=== PATIENT | male | born 1960 | race African-American/Black ===

== ENCOUNTER 2016-03-09 06:56 | Emergency (ER) | payer BC, MEDICAID ==
[~2016-03-09] VITALS: Ht 172.7 cm; Wt 102.1 kg
[~2016-03-09 06:56] MED LIST: ACETAMINOP500 MG/51 ORAL; ACETAMINOPHEN650 M4 ORAL; AMBIEN5 MG ORAL; AMLODIPINE BESYL5 MG ORAL; BENADRYL25 M3 PO; CEFTRIAXONE2 G2 IV; HYDROCHLOROTHIA25 MG ORAL; KENALOG 0.1% CR15 GM APPLIC; MIRALAX17 G2 ORAL; NKM; NORCO 10-325 T1 EACH ORAL; ONDANSETRON4 MG/2 M2 IVP
[2016-03-09 07:10] VITALS: BP 110/76
[2016-03-09] MEDS ORDERED: SULFAMETHOXAZO1 EAC2 ORAL (07:14)
[2016-03-09] MEDS ORDERED: NORCO 5-325 TA1 EACH ORAL ×2 (07:14→09:09)
[2016-03-09] MEDS ORDERED: Oxycodone/Acetaminophen 5-325 ORAL ONE (07:30)
--- NOTE | 2016-03-09 07:34 | Emergency Room Report ---
History of Present Illness General Chief Complaint: Male Urogenital Problems Source: Patient Present Illness HPI The patient presents with leaking from his Hayward catheter. He had a radical prostatectomy last Wednesday. He states he's had making ever since that time from around the Hayward. It got worse last night and he was soaked. He denies passing any blood clots at this time. He is taking antibiotics and pain medication, Sterling. He denies any fevers. He does have right-sided flank pain when he stands up and moves. The pain is 10/10 and pulse with Sterling. It radiates somewhat down to the groin area. The patient called the on-call doctor today who told him to come to the emergency room facet Hayward catheter removed. This is his urologist. The patient has a history of prostate cancer. Allergies: Coded Allergies: No Known Allergies (Unverified , 07/31/14) Patient History Past Medical History: see triage record, other - prostate cancer Past Surgical History: other - radical prostatectomy Social History Narrative brought by daughter Reviewed Nursing Documentation: PMH: Agreed, PSxH: Agreed Nursing Documentation-PMH Past Medical History: No History, Except For Hx Hypertension: Yes Hx Pacemaker: No Hx Asthma: No Hx COPD: No Hx Diabetes: No Hx Cancer: No Hx Gastrointestinal Problems: No Hx Dialysis: No Hx Neurological Problems: No Hx Cerebrovascular Accident: No Hx Seizures: No Review of Systems All Other Systems: negative except mentioned in HPI Physical Exam Vital Signs Date Time Temp Pulse Resp B/P Pulse Ox O2 Delivery O2 Flow Rate FiO2 03/09/16 07:05 98.6 93 14 110/76 95 Room Air Sp02 EP Interpretation: reviewed, normal General Appearance: well appearing, no apparent distress, GCS 15 Head: normocephalic Eyes: bilateral eye normal inspection ENT: moist mucus membranes Neck: supple Respiratory: lungs clear, normal breath sounds Cardiovascular #1: regular rate, rhythm Cardiovascular #2: 2+ radial (R) Gastrointestinal: normal inspection, normal bowel sounds, non tender, no mass, non-distended Genitourinary: normal inspection - with a catheter present, no CVA tenderness Musculoskeletal: back normal, gait/station normal, normal range of motion Neurologic: alert, oriented x3 - Grosssly normal neurologic exam Psychiatric: mood/affect normal Skin: normal inspection, warm/dry, other - Surgical scars abdomen Medical Decision Making Diagnostic Impression: Primary Impression: Leaking hayward post prostatectomy ER Course The patient presents with leaking around Hayward after a prostatectomy 5 days ago. Differential includes blocked Hayward, leaking from around the Hayward, urinary tract infection Amoxil as. He also has flank pain. He be evaluated with laboratory including urinalysis. In addition we will check post void residual. Also will contact his urologist regarding the recommendation from an on-call physician to remove the Hayward. This is somewhat problematic as it might not be appropriate tract that's formed initially appeared time. Bladder scan with no residual. Dr. Yaniv Alba . Discussed with covering neurologists. He recommends removing the Hayward. We will do so. Labs unremarkable. Patient wants to go home before trying to urinate. Patient stable for outpatient observation and treatment. Laboratory Tests Test 03/09/16 07:30 White Blood Count 7.2 K/UL (4.8-10.8) Red Blood Count 4.01 M/UL (4.70-6.10) L Hemoglobin 12.0 G/DL (14.2-18.0) L Hematocrit 38.7 % (42.0-52.0) L Mean Corpuscular Volume 97 FL (80-99) Mean Corpuscular Hemoglobin 29.9 PG (27.0-31.0) Mean Corpuscular Hemoglobin Concent 30.9 G/DL (32.0-36.0) L Red Cell Distribution Width 12.0 % (11.6-14.8) Platelet Count 289 K/UL (150-450) Mean Platelet Volume 6.1 FL (6.5-10.1) L Neutrophils (%) (Auto) 66.4 % (45.0-75.0) Lymphocytes (%) (Auto) 19.1 % (20.0-45.0) L Monocytes (%) (Auto) 9.2 % (1.0-10.0) Eosinophils (%) (Auto) 3.4 % (0.0-3.0) H Basophils (%) (Auto) 1.9 % (0.0-2.0) Urine Color Yellow Urine Appearance Clear Urine pH 6 (4.5-8.0) Urine Specific [place] 1.020 (1.005-1.035) Urine Protein 2+ (NEGATIVE) H Urine Glucose (UA) Negative (NEGATIVE) Urine Ketones Negative (NEGATIVE) Urine Occult Blood 5+ (NEGATIVE) H Urine Nitrite Negative (NEGATIVE) Urine Bilirubin Negative (NEGATIVE) Urine Urobilinogen 1 MG/DL (0.0-1.0) H Urine Leukocyte Esterase 3+ (NEGATIVE) H Urine RBC 15-20 /HPF (0 - 0) H Urine WBC 5-10 /HPF (0 - 0) H Urine Squamous Epithelial Cells Occasional /LPF Urine Bacteria Few /HPF (NONE) Urine Mucus Few /LPF (NONE/OCC) H Sodium Level 134 mEQ/L (135-145) L Potassium Level 4.3 mEQ/L (3.4-4.9) Chloride Level 94 mEQ/L (98-107) L Carbon Dioxide Level 27 mEQ/L (20-30) Anion Gap 13 (5-15) Blood Urea Nitrogen 14 mg/dL (7-23) Creatinine 1.1 mg/dL (0.7-1.2) Estimate Glomerular Filtration Rate > 60 mL/min (>60) Glucose Level 105 mg/dL (74-106) Calcium Level 9.3 mg/dL (8.6-10.2) Total Bilirubin 0.3 mg/dL (0.0-1.2) Aspartate Amino Transferase (AST) 30 U/L (5-40) Alanine Aminotransferase (ALT) 29 U/L (3-41) Alkaline Phosphatase 74 U/L (40-129) Total Protein 7.5 g/dL (6.6-8.7) Albumin 3.9 g/dL (3.5-5.2) Globulin 3.6 g/dL Albumin/Globulin Ratio 1.0 (1.0-2.7) Status: improved Disposition: HOME, SELF-CARE Condition: Improved Scripts Hydrocodone Bit/Acetaminophen 5-325* (NORCO 5-325*) 1 Each Tablet 1 TAB ORAL Q6H Y for For Pain, #14 TAB 0 Refills Prov: Liban Vieira M.D. 03/09/16 Liban Vieira M.D. Mar 09, 2016 07:34
[2016-03-09 07:59] LABS: BASOPHILS % (AUTO) 1.9 % (0.0-2.0); EOSINOPHILS % (AUTO) 3.4 % (0.0-3.0); LYMPHOCYTES % (AUTO) 19.1 % (20.0-45.0); MEAN CORPUSCULAR HEMOGLOBIN 29.9 PG (27.0-31.0); MEAN CORPUSCULAR HGB CONC 30.9 G/DL (32.0-36.0); MEAN CORPUSCULAR VOLUME 97 FL (80-99); MEAN PLATELET VOLUME 6.1 FL (6.5-10.1); MONOCYTES % (AUTO) 9.2 % (1.0-10.0); NEUTROPHILS % (AUTO) 66.4 % (45.0-75.0); PLATELET COUNT 289 K/UL (150-450); RED BLOOD COUNT 4.01 M/UL (4.70-6.10); WHITE BLOOD COUNT 7.2 K/UL (4.8-10.8)
[2016-03-09 08:01] LABS: APPEARANCE,URINE CLEAR; KETONES,URINE NEGATIVE (NEGATIVE); LEUKOCYTE ESTERASE ,URINE 3+ (NEGATIVE); NITRITE,URINE NEGATIVE (NEGATIVE); PH,URINE 6 (4.5-8.0); PROTEIN,URINE 2+ (NEGATIVE); UROBILINOGEN,URINE 1 MG/DL (0.0-1.0)
[2016-03-09 08:13] LABS: ALANINE AMINOTRANSFERASE 29 U/L (3-41); ANION GAP 13 (5-15); ASPARTATE AMINO TRANSFERASE 30 U/L (5-40); CALCIUM 9.3 mg/dL (8.6-10.2); CARBON DIOXIDE 27 mEQ/L (20-30); CHLORIDE 94 mEQ/L (98-107); CREATININE 1.1 mg/dL (0.7-1.2); GLOMERULAR FILTRATION RATE > 60 mL/min (>60); HEMOLYSIS 3; POTASSIUM 4.3 mEQ/L (3.4-4.9); SODIUM 134 mEQ/L (135-145); TOTAL PROTEIN 7.5 g/dL (6.6-8.7)
[2016-03-09 08:27] LABS: BACTERIA,URINE FEW /HPF; MUCUS,URINE FEW /LPF (NONE/OCC); RBC,URINE 15-20 /HPF (0 - 0); SQUAMOUS EPITHELIAL CELL,UR OCCASIONAL /LPF (NONE/OCC)
[2016-03-09 09:18] VITALS: BP 110/76
== END 2016-03-09 09:18 | disposition home or self-care (01) ==
LOC: EMR 07:31
DX: T83.038A Leakage of other urinary catheter, initial encounter (principal); I10 Essential (primary) hypertension; Z85.46 Personal history of malignant neoplasm of prostate; Y83.8 Other surgical procedures as the cause of abnormal reaction of the patient, or of later complication, without mention of misadventure at the time of the procedure; Y92.9 Unspecified place or not applicable; Y99.8 Other external cause status
CPT/HCPCS: 36415; 80053; 81003; 85025; 99282

== ENCOUNTER 2017-06-13 10:47 | Emergency (ER) | payer BC ==
[~2017-06-13] VITALS: Ht 170.2 cm; Wt 108.9 kg
[~2017-06-13 10:47] MED LIST changes: +NORCO 5-325 TA1 EACH ORAL; +SULFAMETHOXAZO1 EAC2 ORAL
--- NOTE | 2017-06-13 11:55 | Emergency Room Report ---
History of Present Illness General Chief Complaint: Lower Extremity Injury Source: Patient Present Illness HPI 49-year-old male walked in with acute pain to bottom of right foot since this morning. Was and waiting normal yesterday, no recent trauma. Denies rash to area, fever or chills. Denies any previous ankle or foot trauma. Denies history of CHF. Took some Tylenol this morning with improvement, however now has to ambulate with cane Allergies: Coded Allergies: No Known Allergies (Unverified , 07/31/14) Patient History Past Medical History: HTN Past Surgical History: none Pertinent Family History: none Social History: Denies: smoking, alcohol use, drug use Immunizations: UTD Reviewed Nursing Documentation: PMH: Agreed; PSxH: Agreed Nursing Documentation-PMH Hx Hypertension: Yes Hx Pacemaker: No Hx Asthma: No Hx COPD: No Hx Diabetes: No Hx Cancer: No Hx Gastrointestinal Problems: No Hx Dialysis: No Hx Neurological Problems: No Hx Cerebrovascular Accident: No Hx Seizures: No Review of Systems All Other Systems: negative except mentioned in HPI Physical Exam Vital Signs Date Time Temp Pulse Resp B/P (MAP) Pulse Ox O2 Delivery O2 Flow Rate FiO2 06/13/17 10:50 98.4 92 18 128/83 92 Room Air 98.4 Sp02 EP Interpretation: reviewed, normal General Appearance: normal inspection, well appearing, no apparent distress, alert, GCS 15, non-toxic Head: normocephalic, atraumatic Eyes: bilateral eye PERRL, bilateral eye EOMI ENT: normal ENT inspection, hearing grossly normal, normal pharynx, no angioedema, normal voice, TMs + canals normal, uvula midline, moist mucus membranes Neck: normal inspection, full range of motion, supple, thyroid normal, no meningismus, no bony tend Respiratory: normal inspection, lungs clear, normal breath sounds, no rhonchi, no respiratory distress, no retraction, no accessory muscle use, no wheezing, speaking full sentences Cardiovascular #1: regular rate, rhythm, no edema, no JVD, normal capillary refill Gastrointestinal: normal inspection, normal bowel sounds, non tender, soft, no mass, no peritonitis, non-distended, no guarding, no hernia, no pulsatile mass Genitourinary: no CVA tenderness Musculoskeletal: normal inspection, back normal, normal range of motion, no calf tenderness, pelvis stable, Christophe's Sign negative, other - Right foot: no obvious trauma. No pallor. No infection. Sensation/motor intact. 2++ dorsalis pedis pulse. Neurologic: normal inspection, alert, oriented x3, responsive, facilities maintenance worker III-XII nml as tested, motor strength/tone normal, cerebellar normal, normal gait, speech normal Psychiatric: normal inspection, judgement/insight normal, mood/affect normal, no suicidal/homicidal ideation, no delusions Skin: normal inspection, normal color, no rash Lymphatic: normal inspection, no adenopathy Medical Decision Making Diagnostic Impression: Primary Impression: Right foot pain ER Course vss, afebrile Duplex artery shows good flow to right foot Xray negative for traumatic injury, osteophyte Likely MSK strain from softball yesterday Rx motrin, PMD followup ER course: Patient has remained stable during ED stay. Disposition: Patient is to be discharged to home. Prescriptions given are motrin Patient is instructed to follow up with their primary care doctor within 5 days. Strict return precautions discussed with patient such as fever, chills, worsening/severe pain, nausea, vomiting, which may indicate severe illness. Patient verbalizes understanding and agrees with plan. Please note that this Emergency Department Report was dictated using [employer] nursery technology software, occasionally this can lead to erroneous entry secondary to interpretation by the dictation equipment Other X-Ray Diagnostic Results Other X-Ray Diagnostic Results : X-Ray ordered: Right foot # of Views/Limited Vs Complete: 3 View Indication: Pain EP Interpretation: Yes Interpretation: no dislocation, no soft tissue swelling, no fractures Impression: No acute disease Electronically Signed by: Dr Satish Pak mD Last Vital Signs Date Time Temp Pulse Resp B/P (MAP) Pulse Ox O2 Delivery O2 Flow Rate FiO2 06/13/17 10:50 98.4 92 18 128/83 92 Room Air 98.4 Status: improved Disposition: HOME, SELF-CARE SATISH PAK M.D. Jun 13, 2017 11:55
[2017-06-13] MEDS ORDERED: IBUPROFEN600 MG ORAL (12:55)
[2017-06-13 13:07] VITALS: BP 119/78
--- NOTE | 2017-06-14 10:49 | Diagnostic Imaging Report ---
Indication: Pain Comparison: None Findings: 3 views of the right foot were obtained. No acute fractures, malalignment, erosions or periostitis are identified. Soft tissues are unremarkable. Impression: No acute findings.
--- NOTE | 2017-06-15 12:43 | Diagnostic Imaging Report ---
APPROVED REPORT CPT Code: 60163 Symptoms Comments: Pain RIGHT LEG: Common femoral artery waveform analysis is within normal limits at rest. Color flow duplex sonography reveals patency of the superficial femoral, popliteal, and tibial arteries, there is no evidence of stenosis or occlusion within these segments. Doppler tibial artery waveform analysis is (tri-phasic) within normal limits, right leg.
== END 2017-06-13 13:09 | disposition home or self-care (01) ==
LOC: EMR 11:05
DX: M79.671 Pain in right foot (principal); I10 Essential (primary) hypertension
CPT/HCPCS: 93926; 99284

== ENCOUNTER 2018-06-19 00:55 | Emergency (ER) | payer BC ==
[~2018-06-19] VITALS: Ht 170.2 cm; Wt 113.4 kg
[~2018-06-19 00:55] MED LIST changes: +IBUPROFEN600 MG ORAL
[2018-06-19 01:10] VITALS: BP 118/72
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
[2018-06-19] MEDS ORDERED: Tetanus/Diptheria/Pertussis IM ONE (01:30)
[2018-06-19] MEDS ORDERED: Bacitracin Oint UD TOPIC ONE (01:30)
[2018-06-19] MEDS ORDERED: CEPHALEXIN500 MG ORAL (01:55)
[2018-06-19] MEDS ORDERED: BACITRACIN15 GM TOPIC (01:55)
[2018-06-19] MEDS ORDERED: Acetaminophen 500mg (ES) tab ORAL ONE (02:00)
--- NOTE | 2018-06-19 02:06 | NUR ---
ED Nurse Note: Waiting for [employer] to come for report but pt was unable to wait any longer. Got pt's Tele, will contact them when [employer] comes.
--- NOTE | 2018-06-19 02:07 | NUR ---
ED Nurse Note: Pt's daughter/Gemma, [phone].
[2018-06-19 02:08] VITALS: BP 115/71
--- NOTE | 2018-06-19 02:08 | NUR ---
ER DISCHARGE NOTE: Patient is cleared to be discharged per Dr. Keith. Dressing applied to both arms and abdominal area.Pain meds given as ordered. Pt is aox4 on room air with stable vital signs. Pt was given dc and prescription instructions and was able to verbalize understanding. Pt's ID band removed. Pt is able to ambulate with steady gait and took all belongings. Accompanied by his daughter.
--- NOTE | 2018-06-19 02:12 | NUR ---
ED Nurse Note: [employer] arrived, provided information.
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
== END 2018-06-19 02:08 | disposition home or self-care (01) ==
LOC: EMR 01:25
DX: S41.112A Laceration without foreign body of left upper arm, initial encounter (principal); S41.111A Laceration without foreign body of right upper arm, initial encounter; S31.119A Laceration without foreign body of abdominal wall, unspecified quadrant without penetration into peritoneal cavity, initial encounter; Y04.8XXA Assault by other bodily force, initial encounter; Y92.410 Unspecified street and highway as the place of occurrence of the external cause; I10 Essential (primary) hypertension; K44.9 Diaphragmatic hernia without obstruction or gangrene; Z23 Encounter for immunization
CPT/HCPCS: 90471; 90715; 99283